=== PATIENT | female | born 1980 | race African-American/Black ===

== ENCOUNTER 2019-08-31 13:38 | Emergency (ER) | payer OTHER, SELFPAY ==
[2019-08-31 13:57] VITALS: BP 125/69; PULSE 84; RESP 18; TEMP 37.2; O2SAT 100
--- NOTE | 2019-08-31 14:17 | ED.FEMALEGU ---
HPI - Female Genitourinary General Chief complaint: [employer] <Jose Grossman PA-C - Last Filed: 08/31/19 15:01> Stated complaint: gyne problems <Jose Grossman PA-C - Last Filed: 08/31/19 15:01> Time Seen by Provider: 08/31/19 14:05 <Jose Grossman PA-C - Last Filed: 08/31/19 15:01> Source: patient <Jose Grossman PA-C - Last Filed: 08/31/19 15:01> Mode of arrival: ambulatory <Jose Grossman PA-C - Last Filed: 08/31/19 15:01> Limitations: no limitations <Jose Grossman PA-C - Last Filed: 08/31/19 15:01> History of Present Illness HPI Narrative: Patient is a 38-year-old who presents to emergency department for evaluation of green vaginal discharge noting that she had unprotected sex potentially would like to be tested and treated for STDs patient notes some mild suprapubic discomfort denies any discussed with vomiting diarrhea or URI symptoms and is otherwise resting comfortably in the room in no distress upon arrival. Patient notes history of having had prior STD <Jose Grossman PA-C - Last Filed: 08/31/19 15:01> Related Data Allergies/Adverse reactions: Allergies Allergy/AdvReac Type Severity Reaction Status Date / Time No Known Allergies Allergy Unverified 03/10/15 13:07 <Jose Grossman PA-C - Last Filed: 08/31/19 15:01> Review of Systems Review of Systems: All systems reviewed & are unremarkable except as noted in HPI and below <Jose Grossman PA-C - Last Filed: 08/31/19 15:01> [facility] Surgical History Surgical History: Surgical History (Updated 08/31/19 @ 14:18 by Jose Grossman PA-C) H/O section <Jose Grossman PA-C - Last Filed: 08/31/19 15:01> Social History Social History: Social History (Updated 08/31/19 @ 14:19 by Jose Grossman PA-C) Smoking status: Never smoker Gender identity (if verbalized by the patient): Female <Jose Grossman PA-C - Last Filed: 08/31/19 15:01> Exam Narrative: Exam Narrative: GENERAL: Well-appearing, well-nourished, and in no acute distress. HEAD: Normocephalic, atraumatic. EYES: PERRLA and EOMI. ENT: Nares clear, no rhinorrhea or epistaxis. Mucous membranes moist. ABDOMEN: Soft, nontender, nondistended FEMALE GENITOURINARY: Green discharge in the vaginal vault EXTREMITIES: Normal range of motion. No edema. SKIN: Warm, dry, no rash. NEURO: No focal deficits. Alert and oriented x3. PSYCH: Normal mood and affect. <Jose Grossman PA-C - Last Filed: 08/31/19 15:01> Course Course Emergency Course: Patient in the room aware of case findings treatment plan and diagnosis agreeing to follow-up as directed or to return if symptoms worsen or concerns <Jose Grossman PA-C - Last Filed: 08/31/19 15:01> Vital Signs Vital signs: Vital Signs Temperature 37.2 C 08/31/19 13:57 Pulse Rate 84 08/31/19 13:57 Respiratory Rate 18 08/31/19 13:57 Blood Pressure 125/69 08/31/19 13:57 Pulse Oximetry 100 08/31/19 13:57 Temperature 37.2 C 08/31/19 13:57 Pulse Rate 84 08/31/19 13:57 Respiratory Rate 18 08/31/19 13:57 Blood Pressure 125/69 08/31/19 13:57 Pulse Oximetry 100 08/31/19 13:57 <MAYA Steinberg Last Filed: 08/31/19 15:01> Vital Signs Temperature 37.2 C 08/31/19 13:57 Pulse Rate 84 08/31/19 13:57 Respiratory Rate 18 08/31/19 13:57 Blood Pressure 125/69 08/31/19 13:57 Pulse Oximetry 100 08/31/19 13:57 Temperature 37.2 C 08/31/19 13:57 Pulse Rate 84 08/31/19 13:57 Respiratory Rate 18 08/31/19 13:57 Blood Pressure 125/69 08/31/19 13:57 Pulse Oximetry 100 08/31/19 13:57 <Ethan Berger MD - Last Filed: 11/07/19 04:31> MDM - Female Genitourinary MDM Narrative Medical decision making narrative: Patient in the room in no distress aware of case findings treatment plan and diagnosis agreeing to follow-up as directed or to return if symptoms worsen or concerns pat
[2019-08-31 14:49] LABS: Add Urine Microscopic? YES; Appearance Urine Cloudy (Clear); Bacteria Urine Trace /hpf; Bilirubin Urine Negative (Negative); Blood Urine 2+ (Negative); Color Urine Yellow (Yellow); Glucose Urine UA 1+ mg/dL (Negative); Ketones Urine Negative (Negative); Leukocyte Esterase Ur 3+ LEU/UL (Negative); Mucus Urine Rare /lpf; Nitrate Urine Negative (Negative); Protein Urine 1+ mg/dL (Negative); Specific Grav Ur 1.025 (1.001-1.035); Squamous Epithelial Cell Urine Many /hpf (Few)
[2019-08-31] MEDS: AZITHROMYCIN 250 MG TABLET 1000 MG PO (15:12)
[2019-08-31] MEDS: metroNIDAZOLE 250 MG TABLET 2000 MG PO (15:13)
[2019-08-31] MEDS: cefTRIAXone 250 MG VIAL IM (15:13)
[2019-08-31] MEDS: LIDOCAINE HCL 1% LOCAL INJ 20 ML VIAL (15:20)
== END 2019-08-31 15:20 | disposition home or self-care (01) ==
PROVIDERS: Emergency Medicine Emergency Medical Services; Emergency Provider Emergency Medicine
DX: N34.2 Other urethritis (principal)
CPT/HCPCS: 81001; 81025; 87070; 87077; 87086; 87088; 87186; 87491; 87591; 87808; 96372; 99284; A9270; J0696

== ENCOUNTER 2019-09-24 15:39 | Emergency (ER) | payer OTHER, SELFPAY ==
[2019-09-24 15:51] VITALS: BP 124/69; PULSE 63; RESP 16; TEMP 37.6; O2SAT 99
--- NOTE | 2019-09-24 16:34 | ED.FEMALEGU ---
HPI - Female Genitourinary General Chief complaint: Urogenital-Female Stated complaint: vaginal discharge/fever/night sweats/nausea Time Seen by Provider: 09/24/19 16:13 Source: patient and RN notes reviewed Mode of arrival: ambulatory Limitations: no limitations History of Present Illness HPI Narrative: Patient presents today complaining of a 2-day history of thick green vaginal discharge. Denies odor. Patient was seen in the ER on 08/31/2019 where she was treated for gonorrhea, chlamydia, and trichomonas with Rocephin, azithromycin, and Flagyl. Vaginal culture results show heavy growth of yeast. Patient states she was not notified of this result. Reports symptoms had gone away 2 days after her visit in the ER, but returned again a few days ago. Denies any unprotected intercourse since her visit in the ER, but does report that she received oral sex. Denies abdominal pain, back pain, dysuria, hematuria, itching. Related Data Allergies Allergy/AdvReac Type Severity Reaction Status Date / Time No Known Allergies Allergy Unverified 03/10/15 13:07 Review of Systems Review of Systems: Narrative: CONSTITUTIONAL: Denies body aches, fever, chills, or sweats. EYES: Denies visual changes, redness, or discharge. ENT: Denies rhinorrhea, congestion, sore throat, or otalgia. CARDIOVASCULAR: Denies chest pain, palpitations, or edema. RESPIRATORY: Denies cough or dyspnea. GASTROINTESTINAL: Denies abdominal pain, nausea, vomiting, or diarrhea. GENITOURINARY: Denies dysuria or hematuria.+ Vaginal discharge SKIN: Denies rash, itching, or wounds. MUSCULOSKELETAL: Denies back pain, joint pain, or myalgia. NEUROLOGIC: Denies headache, numbness, tingling, or weakness. PSYCH: Denies depression or anxiety. [facility] Surgical History Surgical History (Updated 08/31/19 @ 14:18 by Jose Grossman PA-C) H/O section Social History Social History (Updated 08/31/19 @ 14:19 by Jose Grossman PA-C) Smoking status: Never smoker Gender identity (if verbalized by the patient): Female Comments At time of signature, I have reviewed and agree with nursing past medical, surgical, social and family history unless otherwise noted. Please see nursing chart for further information. There is no relevant family history pertinent to the presenting complaint Exam Narrative: Exam Narrative: GENERAL: Well-appearing, well-nourished, and in no acute distress. HEAD: Normocephalic, atraumatic. EYES: EOMI. No redness or drainage. Conjunctivae normal. ENT: Mucous membranes pink and moist. NECK: Normal AROM. CHEST: No respiratory distress. Clear to auscultation. HEART: Regular rate and rhythm. No murmur appreciated. Normal peripheral pulses. ABDOMEN: Soft, nontender, nondistended, normal active bowel sounds. : Vaginal salvador and cervix are excoriated with moderate amount of thick, yellow vaginal discharge noted. -CMT, -adnexal tenderness MUSCULOSKELETAL: No bony tenderness. EXTREMITIES: Normal range of motion. No edema. SKIN: Warm, dry, no rash. NEURO: No focal deficits. Alert and oriented x3. Gait steady. PSYCH: Normal affect. No signs of depression or anxiety. Course Course Emergency Course: As I could not find results for gonorrhea and chlamydia swabs, I be collected these along with trichomonas. Will treat patient presumptively for yeast infection, as this current vaginal discharge is the same as it was in her previous visit to the ER. Patient understands if cultures are negative and her symptoms do not improve that she needs to follow-up with an [facility] or the [facility] STD clinic. Vital Signs Vital signs: Vital Signs Temperature 99.7 F H 09/24/19 15:51 Pulse Rate 63 09/24/19 15:51 Respiratory Rate 16 09/24/19 15:51 Blood Pressure 124/69 09/24/19 15:51 Pulse Oximetry 99 09/24/19 15:51 Temperature 99.7 F H 09/24/19 15:51 Pulse Rate 63 09/24/19 15:51 Respiratory Rate 16 09/24/19 15:51 Blood Pressure 1
== END 2019-09-24 16:47 | disposition home or self-care (01) ==
PROVIDERS: Emergency Provider Nurse Practitioner
DX: B37.3 Candidiasis of vulva and vagina (principal)
CPT/HCPCS: 87491; 87591; 87661; 99213; G0463